=== PATIENT | male | born 1995 | race Caucasian/White ===

== ENCOUNTER 2025-01-28 06:27 | Emergency (ER) | payer OTHER ==
[2025-01-28 06:35] VITALS: BP 129/80; PULSE 62; RESP 18; TEMP 97.5; BMI 25.8
[2025-01-28] MEDS ORDERED: IBUPROFEN 600 MG TABLET (FP) PO ONE (06:44)
[2025-01-28] MEDS ORDERED: LIDOCAINE 4% PATCH TP ONE (06:45)
[2025-01-28] MEDS ORDERED: LIDOCAINE 5% TOPICAL PATCH ONE (06:46)
[2025-01-28] MEDS: IBUPROFEN 600 MG TABLET (FP) PO ONE (06:49)
[2025-01-28] MEDS: LIDOCAINE 5% TOPICAL PATCH TP ONE (06:49)
[2025-01-28] MEDS ORDERED: LIDOCAINE PATCH REMOVAL MC SCH (22:00)
== END 2025-01-28 07:05 | disposition home or self-care (01) ==
LOC: JER 06:27
DX: M54.50 Low back pain, unspecified (principal); W01.0XXA Fall on same level from slipping, tripping and stumbling without subsequent striking against object, initial encounter; Y99.0 Civilian activity done for income or pay
CPT/HCPCS: 99283-25